=== PATIENT | female | born 1955 | race Caucasian/White ===

== ENCOUNTER 2021-10-13 12:56 | Emergency (ER) | payer OTHER, MEDICAID ==
[~2021-10-13] VITALS: Ht 170.2 cm; Wt 70.8 kg
[2021-10-13 13:43] VITALS: BP_SYST 171
[2021-10-13 13:44] LABS: BASOPHILS # (AUTO) 0.1 K/uL (0.0-0.2); BASOPHILS % (AUTO) 0.5 % (0.0-2.0); EOSINOPHILS # (AUTO) 0.1 K/uL (0.0-0.4); EOSINOPHILS % (AUTO) 1.1 % (0.0-4.0); HEMATOCRIT 40.5 % (36-48); HEMOGLOBIN 13.7 g/dL (12.0-16.0); LYMPHOCYTES # (AUTO) 1.2 K/uL (1.0-5.5); LYMPHOCYTES % (AUTO) 11.2 % (20.5-51.5); MEAN CORPUSCULAR HEMOGLOBIN 29 pg (27-31); MEAN CORPUSCULAR HGB CONC 34 % (32-36); MEAN CORPUSCULAR VOLUME 85 fL (79.0-98.0); MONOCYTES # (AUTO) 0.8 K/uL (0.0-1.0); MONOCYTES % (AUTO) 7.8 % (1.7-9.3); NEUTROPHILS # (AUTO) 8.3 K/uL (1.8-7.7); NEUTROPHILS % (AUTO) 79.4 % (40.0-70.0); PLATELET COUNT (AUTO) 312 K/uL (130-430); RED BLOOD CELL COUNT(AUTO) 4.79 MIL/uL (4.2-6.2); RED CELL DISTRIBUTION WIDTH 14.8 % (9.0-15.0); WHITE BLOOD COUNT (AUTO) 10.5 K/uL (4.8-10.8)
[2021-10-13 13:59] LABS: ANION GAP 10 (5-15); CALCIUM 8.8 mg/dL (8.4-11.0); CHLORIDE 104 mmol/L (98-107); CREATININE 1.02 mg/dL (0.55-1.30); GLUCOSE 126 mg/dL (70-99); POTASSIUM 4.2 mmol/L (3.5-5.1); SODIUM SERUM 139 mmol/L (136-145); UREA NITROGEN, BLOOD 14 mg/dL (8-21)
[2021-10-13 14:00] LABS: GFR AFRICAN AMERICAN 70 mL/min (>90)
[2021-10-13 14:01] LABS: CHOLESTEROL 207 mg/dL (<200); HDL CHOLESTEROL 57 mg/dL (>55); LDL CHOLESTEROL 120 mg/dL (<100); TRIGLYCERIDES 167 mg/dL (30-150)
[2021-10-13 14:05] LABS: ALANINE AMINOTRANSFERASE 23 U/L (12-78); ALBUMIN 3.8 g/dL (3.4-4.8); ASPARTATE AMINOTRANSFERASE 13 U/L (10-37); TOTAL BILIRUBIN 0.2 mg/dL (0.0-1.0)
[2021-10-13 14:06] LABS: ACETAMINOPHEN < 1 ug/mL (1-30)
[2021-10-13 14:07] LABS: ALCOHOL, BLOOD < 3 mg/dL (<10)
[2021-10-13 17:12] LABS: BILIRUBIN,URINE NEGATIVE (NEGATIVE); BLOOD, URINE NEGATIVE (NEGATIVE); CLARITY/URINE CLEAR (CLEAR); GLUCOSE,URINE NEGATIVE (NEGATIVE); KETONES,URINE NEGATIVE (NEGATIVE); LEUKOCYTE ESTERASE ,URINE NEGATIVE (NEGATIVE); NITRITE, URINE NEGATIVE (NEGATIVE); PH,URINE 7.5 (5.0-8.0); PROTEIN URINE NEGATIVE (NEGATIVE); UROBILINOGEN,URINE 0.2 (0.2-1.0)
[2021-10-13 17:20] LABS: COLOR,URINE STRAW (YELLOW)
[2021-10-13 18:06] LABS: BARBITURATE, URINE NEGATIVE (NEG <=200); BENZODIAZEPINE, URINE NEGATIVE (NEG <=150); CANNABINOID, URINE NEGATIVE (NEG <=50); COCAINE, URINE NEGATIVE (NEG <=150); METHAMPHETAMINES SCREEN,URINE NEGATIVE (NEG <=500); OPIATE, URINE NEGATIVE (NEG <=100); PHENCYCLIDINE SCREEN,URINE NEGATIVE (NEG <=25); URINE AMPHETAMINE NEGATIVE (NEG <=500); URINE METHADONE NEGATIVE (NEG <=200)
[2021-10-13 18:07] LABS: UR TRICYCLIC ANTIDEPRESSANTS POSITIVE (NEG <=300); URINE OXYCODONE SCREEN NEGATIVE (NEG <=100); URINE PROPOXYPHENE SCREEN NEGATIVE (NEG <=300)
[2021-10-13] MEDS ORDERED: LORazepam 2 MG/ML VIAL IM ONE (20:00)
[2021-10-13] MEDS ORDERED: HALOPERIDOL LACTATE 5 MG/ML VIAL IM ONE (20:00)
[2021-10-13] MEDS ORDERED: DIPHENHYDRAMINE INJ 50 MG/ML VIAL IM ONE (20:00)
[2021-10-14 01:02] VITALS: BP_SYST 125
== END 2021-10-14 00:48 ==
LOC: SED 12:56
DX: Z04.6 Encounter for general psychiatric examination, requested by authority (principal); F03.90 Unspecified dementia, unspecified severity, without behavioral disturbance, psychotic disturbance, mood disturbance, and anxiety; I10 Essential (primary) hypertension; Z20.822 Contact with and (suspected) exposure to COVID-19
CPT/HCPCS: 36415; 80053; 80061; 80307; 81003; 83036; 85025; 87081; 87426; 96372; 99285; G0480; G0481; G0482; J1200; J1630; J2060; 99284